=== PATIENT | female | born 1975 | race Caucasian/White ===

== ENCOUNTER → 2019-04-10 | Outpatient (CLI) | payer OTHER, SELFPAY ==
--- NOTE | 2019-04-10 17:07 | MRI_ITS ---
HISTORY: lt calcaneal spur/achilles tendonitis EXAMINATION: MR left Ankle W/O Contrast TECHNIQUE: Multiplanar and multisequence MR images of the left ankle. IV Contrast dosage and agent: None. COMPARISON: None FINDINGS: The calcaneus shows a large plantar spur and a moderately large posterior spur. Mild plantar fascitis with mild edema of the medial cord of the plantar fascia bordering the calcaneal spur. In addition, more superficial subcutaneous edema of the heel pad, more so medially. The distal Achilles shows normal signal. No evidence of retrocalcaneal or superficial calcaneal bursitis. No fracture or avascular necrosis. The tibiotalar joint is preserved. Intact talar dome. No joint effusion. Flexor hallucis longus increased peritendinous fluid at the posterior ankle compatible with tenosynovitis. Normal peroneal and posterior tibial tendons and normal extensor tendons. No ligamentous abnormality seen. MRI/Lower Ext Joint Only (Routine) IMPRESSION: 1. Medial cord mild plantar fasciitis accompanied by superficial edema of the heel pad, more so medially. 2. Large plantar calcaneal spur and moderately large posterior spur. Normal Achilles insertion and no calcaneal bursitis. 3. Flexor hallucis longus tenosynovitis, left ankle. at 0843 Reported and signed by: Donta Vieira MD Electronically Signed: Donta Vieira, at 8:41 EDT Tel , Service support ,
== END | disposition home or self-care (01) ==
PROVIDERS: Referring Provider Podiatrist; Visit Provider Podiatrist
DX: M76.62 Achilles tendinitis, left leg (principal); M77.32 Calcaneal spur, left foot
CPT/HCPCS: 73721

== ENCOUNTER 2021-09-21 06:31 | Outpatient (CLI) | payer OTHER, SELFPAY ==
--- NOTE | 2021-09-21 06:42 | MRI_ITS ---
STUDY: MRI LEFT ANKLE WITHOUT CONTRAST REASON FOR EXAM: Posterior and plantar ankle pain for 5 months. TECHNIQUE: Standardized fat and water weighted pulse sequences were obtained in all 3 orthogonal planes. COMPARISON: MRI images 04/10/2019. FINDINGS: There is mild edema in the medial and lateral subcutis adipose space. There is a very small volume of fluid in the submalleolar posterior tibialis tendon sheath (inversion recovery sagittal image 6). The posterior tibialis tendon is morphologically normal. Normal flexor digitorum longus tendon. There is a small volume of fluid in the proximal flexor hallucis longus tendon sheath likely from communication with the tibiotalar articulation. There is a very small volume of fluid in the perimalleolar peroneal tendon sheath (inversion recovery sagittal images 18, 19). The peroneus longus and brevis tendons are morphologically normal. Normal tibialis anterior tendon. Normal extensor hallucis longus tendon. Normal extensor digitorum longus tendons. Normal Achilles tendon and teno-osseous insertion. There is a small posterior calcaneal enthesophyte. There is mild thickening of the central cord of the plantar fascia (T1 sagittal image 10) suggestive of chronic plantar fasciitis. There is a plantar calcaneal enthesophyte. Normal intrinsic muscles of the rearfoot. Normal distal tibiofibular syndesmotic ligamentous complex. Normal lateral ligamentous complex. Normal subtalar ligaments and sinus tarsi. There is mild cystic change of the talus and calcaneus adjacent to the sinus tarsi. Normal deltoid ligamentous complexes. Normal plantar calcaneonavicular (spring) ligament. There is a small tibiotalar joint effusion. Normal talar dome. Normal subtalar articulations. There is an os trigonum with very mild bone edema (inversion recovery sagittal image 13), decreased since the prior study. Normal talonavicular articulation. Normal calcaneocuboid articulation. Normal navicular-cuneiform articulations. There is mild bone edema of the medial malleolus, medial talus, and medial calcaneus (T2 coronal images 15-16) and plantar aspect of the head of the talus (inversion recovery sagittal images 10, 11), a stress phenomenon. There is mild bone edema of the fourth metatarsal (inversion recovery sagittal image 14), a stress phenomenon. MRI/Lower Ext Joint Only (Routine) IMPRESSION: Os trigonum with very mild bone edema, decreased since the prior study. Mild bone edema of the medial malleolus, talus, calcaneus and fourth metatarsal, a stress phenomenon. Mild chronic plantar fasciitis. Very mild posterior tibialis tenosynovitis. Very mild peroneal tenosynovitis. Small tibiotalar joint effusion. No demonstrated Achilles tendinosis. Electronically Signed: Rafael Abarca MD at 8:31 EST Tel , Service support ,
== END 2021-09-21 23:59 | disposition short-term general hospital (02) ==
PROVIDERS: PCP Registered Nurse; Referring Provider Podiatrist; Visit Provider Podiatrist
DX: M76.62 Achilles tendinitis, left leg (principal); M72.2 Plantar fascial fibromatosis; M77.32 Calcaneal spur, left foot
CPT/HCPCS: 73721

== ENCOUNTER 2021-10-16 06:10 | Day surgery (SDC) | payer OTHER, SELFPAY ==
[2021-10-04 15:27] LABS: Absolute Lymphocyte Count 1.36 X10^3/uL (0.83-4.51); Absolute Neutrophil Count 3.7 X10^3/uL (2.0-7.7); Basophil# 0.05 X10^3/uL; Basophil% 0.9 % (0-1); Eosinophil# 0.15 X10^3/uL; Eosinophils% 2.6 % (0-5); Hematocrit 42.3 % (37-47); Hemoglobin 14.4 g/dL (12.0-15.0); Lymphocyte # 1.36 X10^3/ul (0.83-4.51); Lymphocyte % 23.5 % (19-41); Mean Corpuscular Hgb 30.1 pg (27.0-32.0); Mean Corpuscular Volume 88.3 fL (81-99); Mean Platelet Vol. 11.3 fl (6.2-12.0); Monocyte# 0.48 X10^3/uL; Monocyte% 8.3 % (0-10); NRBC Flagged by Analyzer 0 % (0-5); Neutrophil # 3.72 X10^3/uL (2.7-7.7); Neutrophil % 64.4 % (47-70); Platelet Count 314 K/mm3 (150-450); RBC Distribution Width CV 12.2 % (11.6-14.6); RBC Distribution Width SD 39.6 fl (35.1-43.9); Red Blood Count 4.79 M/mm3 (4.2-5.4); White Blood Count 5.8 K/mm3 (4.4-11.0)
[2021-10-04 15:52] LABS: ALB/GLOB Ratio 1.2 RATIO (0.9-2.4); AST(SGOT) 11 U/L (15-37); Alanine Aminotransfer ALT/SGPT 17 U/L (13-56); Albumin, Serum 3.9 g/dL (3.2-5.0); Alkaline Phosphatase 95 U/L (45-117); Anion Gap 6 (5-15); BUN 9 mg/dL (7-18); BUN/Creat Ratio 11.1 RATIO (10-20); Chloride 104 mmol/L (98-107); Creatinine, Serum 0.81 mg/dL (0.55-1.02); EST Glomerular Filtration Rate 80 mL/min (>60); Est Glom Filt Rate - Afr Amer 97 mL/min (>60); Globulin 3.3 g/dL (2.2-4.2); Glucose 82 mg/dL (74-106); Potassium 3.5 mmol/L (3.5-5.1); Protein, Total 7.2 g/dL (6.4-8.2); Sodium Level 137 mmol/L (136-145)
[2021-10-16] VITALS (7 sets, daily range): BP systolic 107–126; BP diastolic 64–83; PULSE 71–107; RESP 14–20; TEMP 35.9–36.4; O2SAT 88–99; BMI 44.9
--- NOTE | 2021-10-16 | TESH_PTH ---
PATIENT: SHEFALI RAINES LOC: [facility] [place] U#:[id number] AGE/SX: 46/F ROOM: RE10/16/[address]: Dr. 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 Debrided tendon and retrocalcaneal spur, left foot: Pieces of fibroadipose and fibroconnective tissue and synovial tissue with reactive changes. Pieces of bone with reactive changes. B. Os trigonum, left foot: Pieces of bone with adherent pieces of fibroconnective tissue with reactive changes. TUAN:anita 10/19/2021 MICROSCOPIC DESCRIPTION Slides are reviewed. GROSS DESCRIPTION A - Received in fixative is one container labeled with the patient's name and designated debrided tendon and retrocalcaneal spur, left foot. The specimen consists of multiple pieces of bone that in aggregate measure 2.5 x 3 x 1 cm. Also present in the container are multiple pieces of soft tissue measuring in aggregate 2 x 2 x 0.3 cm. [employer] sections are submitted in two cassettes as follows: 1 - entire soft tissue, 2 - bone after decalcification. B - Received in fixative is one container labeled with the patient's name and designated os trigonum, left foot. The specimen consists of multiple pieces of bone that in aggregate measure 5 x 3 x 0.3 cm. The entire specimen is submitted in two cassettes after decalcification. / TUAN:anita 10/16/2021 TC:5 CPT: 79639 x2, 18373 x2
[2021-10-16] MEDS: Lactated Ringers 1,000 ML 15 ML IV ×2 (06:55→09:01)
[2021-10-16 07:03] LABS: Internal QC Validated? YES +Cl - CLEAR BKGD; Pregnancy, Serum, hCG Quali. NEGATIVE Negative
--- NOTE | 2021-10-16 07:20 | RAD_ITS ---
STUDY: X-RAY - LEFT CALCANEUS REASON FOR EXAM: Female, 46 years old. Intraoperative digital documentation views of resection os trigonum. TECHNIQUE: 5 intraoperative digital documentation view(s) of the calcaneus were obtained. COMPARISON: MRI of the ankle dated 09/21/2021. FINDINGS: 5 intraoperative digital documentation views were obtained. 23 images acquired. Total exposure time 45 seconds. Long this single exposure 5 seconds. Total DAP 6.2000 cGy/cm2. Total Air Kerma 0.3690 mGy RAD/Calcaneus min 2 Views IMPRESSION: Intraoperative digital documentation views as described. Electronically Signed: Jorge Morton MD at 9:56 EST ,
[2021-10-16] MEDS: Bupivacaine Mpf 0.5% 30 ML VIAL (09:05)
--- NOTE | 2021-10-16 09:30 | DCINST_ITS ---
Discharge Instructions Diet Discharge Diet: Light diet - advance as tolerated Activity Weight Bearing Status: No weight bearing (No weightbearing on left foot.) Keep extremity elevated above heart level: Left Leg (Keep left foot elevated with pillows with pressure off of heel for at least 50 minutes of every hour.) Dressing / Incision Call your doctor if your incision/area has: Continuous Slow Oozing and Foul Smelling Discharge Call your doctor if you observe: Fever of 101 or Higher, Coldness, Increased Pain, Shortness of breath, Chest pain, Increased palpitations (irregular heartbeat), Calf discomfort and Uncontrolled pain Change Dressing in: do not change dressing Remove Dressing in: leave in place till F/U Cleanse incision/area with: Do not get Incision Wet and Keep Dressing Clean & Dry Follow Up Care Please Follow Up With: dorothy When: in [facility] the [facility], call sooner if needed. Office number: [phone] Dr. Anderson pager/cell: [phone] Test Results: Test results from this visit will be discussed in further detail at your follow-up appointment, if applicable. Discharge Plan Admission Attending Provider: Josh Anderson Primary Care Provider: Mariza Plummer NP Discharge Orders/Prescriptions Prescriptions: New hydrocodone-acetaminophen 5-300 mg tablet 1 - 2 tab PO Q6H PRN (Reason: pain) 4 Days Qty: 30 RF: 0 aspirin 325 mg tablet 325 mg PO DAILY Qty: 60 RF: 0 Discontinued acetaminophen [Tylenol] 325 mg Tablet 650 mg PO Q6H PRN (Reason: Pain) RF: 0 No Action multivitamin with folic acid [Thera] 1 TABLET tablet 1 tab PO DAILY RF: 0 Referrals / Follow Up: Mariza Plummer NP, [employer] [Primary Care Provider] - Disposition Disposition (needs filled in before D/C Order can be placed): Home, Self Care
--- NOTE | 2021-10-16 09:33 | OP.PCM_ITS ---
Report of Operation Date of Procedure: 10/16/21 Pre-Operative Diagnosis: Os Trigonum, left ankle Plantar fasciitis with infracalcaneal spur, left Achilles tendinitis with retrocalcaneal spur/Camden's deformity, left Post-Operative Diagnosis: Same Surgery/Procedure Performed:: Left foot resection of os trigonum, detach/reattach of achilles tendon with removal of retrocalcaneal spur/camden's deformity, plantar fasciotomy with resection of infracalcaneal spur Surgeon: Josh Anderson fringe knotter: Eddie Rice Type of Anesthesia: General and Local Specimen's removed: Excised os trigonum left ankle sent to pathology Debrided achilles tendon with resection of retrocalcaneal spur and camden's deformity, left - sent to pathology Estimated Blood Loss (mL): 3mL Description of Procedure: Indications: Patient is 46 year old female with chronic left hindfoot/ankle pain despite extensive nonsurgical care. Patient would like to proceed with surgical intervention with the procedures as noted above. The possible benefits vs risks, goals, expectations, estimated healing time was discussed and reviewed with her. The consent forms were reviewed with her. She agreed and all of her questions were answered. Operative Procedure: The patient was brought back into the operating room and was in the supine position. The patient received spinal anesthesia per the anesthesiologist. After anesthesia was obtained, she was carefully placed in the prone position and a well-padded pneumatic tourniquet was applied around her left thigh. A time-out was performed and the patient was properly identified and surgical plan was confirmed. The patient did receive prophylactic antibiotics for this procedure, which was 900mg of Clindamycin intravenous. The left lower extremity was scrubbed, prepped and draped in the usual aseptic fashion. Achilles tendon debridement.repair, detacth/reattach Achilles tendon with re section of retrocalcaneal spur and Camden's deformity: Further attention was directed to the left heel. There was noted to be a retrocalcaneal spur and Camden's deformity palpable underneath the skin on the posterior aspect of the calcaneus. The left foot was elevated and also exsanguinated with an Esmarch bandage and the left thigh pneumatic tourniquet was inflated to 300mmHg. Using #15 scalpel blade, a linear longitudinal skin incision was made overlying the posterior aspect of the distal Achilles tendon and the posterior calcaneus. Careful dissection was completed down to the insertion points of the Achilles tendon, and the paratenon was incised with a #15 scalpel blade, and was carefully reflected to visualize the Achilles tendon. The Achilles tendon was visualized, it was noted to be thickened with some nonviable tendon, there was retrocalcaneal bursitis which was debrided away using a #15 scalpel blade - this debrided tendon and bursa was sent to pathology. Using #15 scalpel blade, a midline incision was made through the most distal aspect of the Achilles tendon and carefully reflected off of the calcaneus keeping the medial and lateral insertion points intact. The large Camden deformity and the retrocalcaneal spur were visualized, in which the Camden deformity and retrocalcaneal spur were quite large. The retrocalcaneal spur and Camden's deformities were excised u sing a powered sagittal saw, and were passed from the surgical field and sent to pathology along with the debrided Achilles tendon and bursa for further analysis. At this time, the site was flushed out with copious amounts of normal saline solution. The Achilles tendon was carefully anchored back down to it's insertion point on the posterior calcaneus using one Arthrex SpeedBridge. This was applied following the recommended manufactures technique guide. The Achilles tendon was also reinforced using 2-0 fiberwire. At this time, the Achilles tendon was intact and it was well secured to the posterior aspect of the calcaneus at its insertion. There was good plantarflexion of the foot and ankle with calf squeeze. There was a negative Ross test meaning the Achilles tendon was intact with working well. The proper resection of the heel spurs and Camden's deformity was confirmed using intraoperative fluoroscopy. The site was flushed out with copious amounts of normal saline solution. The surgical site was stable. The paratenon was carefully reapproximated using 3-0 Vicryl. The subcutaneous tissue layer was carefully reapproximated using 3-0 Vicryl and the skin was carefully reapproximated using 4-0 Monocryl. Cavilon was gently painted along the sutured skin incision site and Steri-Strips were placed across the sutured skin incision. Plantar Fasciotomy and resection of infracalcaneal spur: Attention was directed to the plantar fascia. A skin incision was made to the medial hindfoot at the level of the origin of the plantar fascia on the inferior calcaneus. Careful dissection was completed down through the subcutaneous tissue layer. A plane was created superiorly and inferiorly around the plantar fascia. There was significant thickening, tightness, and fibrosis of the plantar fascia consistent with plantar fasciitis. The medial 50% of the plantar fascia was released via a plantar fasciotomy. The infracalcaneal spur was identified and was resected using a powered sagittal saw, resection was confirmed using intraoperative fluoroscopy. The site was flushed out with copious amounts of normal saline solution. The skin was reapproximated using 3-0 Monocryl. Excision of Os Trigonum: The incision was made to the posterior ankle, dissection was completed down through the subcutaneous tissue, and through the achilles tendon as noted above. There was a large os trigonum noted to the posterior talus, and it was excised. The excised os trigonum was sent to pathology for further evaluation. The site was flushed out with copious amounts of normal saline solution. The skin was reapproximated using 3-0 Monocryl. A total of 30mL of 0.5% bupivacaine plain was given as a regional infiltrative nerve block around the surgical sites. The pneumatic tourniquet was deflated and there was immediate return of warmth and perfusion to the right foot with normal temperature gradient (total tourniquet time was 79 minutes). Capillary fill time was less than three seconds. A dressing was applied, which consisted of Betadine-soaked adaptic, 4 x 4 gauze, Kerlix, and Tony bandages. A well padded below knee posterior splint was applied to the left foot/ankle/leg with heel offloaded. Of note all vital structures, including all vital neurovascular structures and tendon structures were properly identified, protected and retracted as necessary throughout the above operative procedure. The patient was transported from the operating room to the recovery room with vital signs stable and in good condition. Postoperative orders were placed. She was admitted for post operative pain control, and planned nursing facility placement. Left foot xrays were obtained and reviewed which confirmed resection of the Camden's deformity and heel spurs without complications. Grafts/Implants Used: Arthrex Speedbridge Complications None
--- NOTE | 2021-10-16 09:55 | RAD_ITS ---
STUDY: X-RAY - LEFT FOOT CLINICAL: Female, 46 years old. Postoperative evaluation TECHNIQUE: 3 view(s) of the foot. COMPARISON: MRI of the foot dated 09/21/2021. FINDINGS: Resection of os trigonum. Inferior calcaneal spur. Osteopenia. Osteoarthritic changes with hallux valgus deformity. Minimal posterior soft tissue swelling. RAD/Foot min 3 Views IMPRESSION: Post surgical changes without complications. Electronically Signed: Jorge Morton MD at 10:11 EST ,
== END 2021-10-16 23:59 | disposition home or self-care (01) ==
LOC: SDC 06:12 → AC 06:14
PROVIDERS: Anesthesiology; Family Medicine; PCP Registered Nurse; Referring Provider Podiatrist; Visit Provider Podiatrist
PROC: (CPT 28119; principal; 2021-10-16 07:15)
DX: M76.62 Achilles tendinitis, left leg (principal); M77.32 Calcaneal spur, left foot; M72.2 Plantar fascial fibromatosis; Q68.8 Other specified congenital musculoskeletal deformities; M92.62 Juvenile osteochondrosis of tarsus, left ankle
CPT/HCPCS: 28120; 28119; 27650; 01472; 36415; 73630; 73650; 76000; 80053; 84703; 85025; 88304; 88311; J7120; J2405

== ENCOUNTER → 2022-05-22 | Outpatient (CLI) | payer OTHER, SELFPAY ==
--- NOTE | 2022-05-22 16:45 | MRI_ITS ---
STUDY: MRI LEFT ANKLE WITH AND WITHOUT CONTRAST REASON FOR EXAM: Female, 47 years old. Achilles tendinitis, posterior tibialis tendinitis, prior -- surgery 10/16/21 TECHNIQUE: Standarized fat and water weighted pulse sequences were obtained in all 3 orthogonal plane pre and post intravenous administration of 23ML IV CLARISCAN. COMPARISON: September 21, 2021 FINDINGS: Normal subcutis adipose space. Normal posterior tibialis tendon. Normal flexor digitorum longus tendon. Normal flexor hallucis longus tendon. Normal peroneus longus and brevis tendons. Normal tibialis anterior tendon. Normal extensor hallucis longus tendon. Normal extensor digitorum longus tendons. There is postoperative change of the Achilles tendon with regions of susceptibility artifact. There is tendinosis with thickening, enhancement, and partial intrasubstance tear, series 9 and 11 images 07/24. There are tracts from intervention in the posterior calcaneus. There is plantar spur of the calcaneus with partial resection compared to the prior exam. There is postoperative change with focal defect of the proximal plantar fascia Normal intrinsic muscles of the rearfoot. Normal distal tibiofibular syndesmotic ligamentous complex. Normal lateral ligamentous complex. Normal subtalar ligaments and sinus tarsi. There is stable ossification inferior to the medial malleolus of the distal tibia with a prior avulsion fracture and/or chronic impingement. Normal deltoid ligamentous complexes. Normal plantar calcaneonavicular (spring) ligament. There is mild joint space narrowing and small effusion of the tibiotalar articulation. Normal talar dome. There is mild joint space narrowing and spurring of the subtalar articulations. Normal talonavicular articulation. Normal calcaneocuboid articulation. Normal navicular-cuneiform articulations. MRI/Lower Ext Joint Only W/WO Cont IMPRESSION: Postoperative changes. Tendinosis with partial intrasubstance tearing of the distal Achilles tendon. Prior medial avulsion fracture and/or chronic impingement. Electronically Signed: Nate Cuenca MD at 18:22 EDT ,
== END | disposition home or self-care (01) ==
LOC: MRI 16:22
PROVIDERS: PCP Registered Nurse; Referring Provider Podiatrist; Visit Provider Podiatrist
DX: M76.62 Achilles tendinitis, left leg (principal); M76.822 Posterior tibial tendinitis, left leg
CPT/HCPCS: 73723; A9575

== ENCOUNTER → 2022-10-24 | Outpatient (CLI) | payer OTHER, SELFPAY ==
--- NOTE | 2022-10-24 13:14 | NEURO_ITS ---
NCS and/or EMG Patient Report Ordering Doctor: Josh Anderson DATE OF SERVICE: 10/24/22 Margy presents for electrodiagnostic testing of the left lower limb. She reports having had surgery approximately 1 year ago. She has subsequently has had pain int the dorsum of her foot. She denies any numbness or tingling. Electrodiagnostic findings: Left peroneal motor nerve demonstrates normal distal latency, amplitude and conduction velocity. Normal left tibial motor response. Normal tibial and peroneal F waves. Sensory responses, including plantar responses are within normal limits normal H reflex bilaterally needle EMG, all muscles tested in the left lower limb showed no evidence of denervation with nor mal motor unit action potentials Electrodiagnostic impression: This is a normal electrodiagnostic study of the left lower limb. There is no electrodiagnostic evidence for peripheral neuropathy, including tarsal tunnel syndrome. There is no electrodiagnostic evidence for lumbosacral radiculopathy.
== END | disposition home or self-care (01) ==
LOC: PSN 08:34
PROVIDERS: PCP Registered Nurse; Referring Provider Podiatrist; Visit Provider Podiatrist
DX: G57.52 Tarsal tunnel syndrome, left lower limb (principal)
CPT/HCPCS: 95886; 95910